=== PATIENT | female | born 1940 | race African-American/Black ===

== ENCOUNTER 2019-07-23 07:06 | Day surgery (SDC) | payer OTHER ==
[2019-07-22 11:39] VITALS: BMI 27.8
[~2019-07-23 07:06] MED LIST: ACETAMINOPHEN 325 MG TABLET (FP) PO PRN; TOBRAMYCIN/DEXAMETHASONE OPHTH. OINTMENT 1 TUBE OD ONE
[2019-07-23] MEDS ORDERED: TROPICAMIDE 1% OPHTH SOLN 15 ML BOTTLE ONE (08:22)
[2019-07-23] MEDS ORDERED: PHENYLEPHRINE 2.5% OPHTH SOLN 15 ML BOTTLE ONE (08:22)
[2019-07-23] MEDS ORDERED: CIPROFLOXACIN HCL 0.3% OPHTH 2.5ML BOTTLE ONE (08:22)
[2019-07-23] MEDS ORDERED: KETOROLAC TROMETHAMINE 0.5% EYE DROP 1 DROP DROPS ONE (08:23)
[2019-07-23] MEDS: PHENYLEPHRINE 2.5% OPHTH SOLN 15 ML BOTTLE OP SCH ×3 (08:25→08:35)
[2019-07-23] MEDS: KETOROLAC TROMETHAMINE 0.5% EYE DROP 1 DROP DROPS OP SCH ×3 (08:25→08:35)
[2019-07-23] MEDS: CIPROFLOXACIN HCL 0.3% OPHTH 2.5ML BOTTLE OP SCH ×3 (08:25→08:35)
[2019-07-23] MEDS: TROPICAMIDE 1% OPHTH SOLN 15 ML BOTTLE OP SCH ×3 (08:25→08:35)
--- NOTE | 2019-07-23 09:36 | HP ---
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, ARIEL) - Ocular History Other Eye History: Other (7th nerve palsy , ARIEL) Eye Medications: vigamox Previous Eye Surgery: none - Medical History Illnesses: Asthma, Hypertension, Hypercholesterolemia, CVA, Other (heart disease , gout) Current Medications: Ambulatory Orders Albuterol Sulfate Inhaler - [Ventolin Hfa Inhaler -] 1 puff IH PRN 07/22/19 Allopurinol 300 mg PO DAILY 07/22/19 Amlodipine Besylate [Norvasc -] 10 mg PO DAILY 07/22/19 Aspirin [ASA -] 81 mg PO DAILY 07/22/19 Colchicine 0.6 mg PO DAILY 07/22/19 Ipratropium/Albuterol Sulfate [Combivent Respimat Inhal [place]] 4 gm IH Q4H 07/22 Lisinopril/Hydrochlorothiazide [Lisinopril-Hctz 20-25 mg Tab] 1 each PO DAILY Naproxen [Naprosyn] 500 mg PO DAILY 07/22/19 Ranolazine [Ranexa] 500 mg PO BID 07/22/19 Rosuvastatin Calcium [Crestor] 20 mg PO DAILY 07/22/19 Allergies/Adverse Reactions: Allergies Allergy/AdvReac Type Severity Reaction Status Date / Time No Known Allergies Allergy Verified 07/22/19 11:39 Ocular Examination - Best Corrected Visual Acuity Distance: Right eye: 20/100 Distance: Left eye: 20/50 - External/Slit Lamp Examination Abnormalities: spk - Intraocular Pressure Intraocular Pressure - Right eye: 17 Intraocular Pressure-Left eye: 17 - Lens Lens: 3+ NS 3+ cortical changes - Vitreous/Retina Vitreous/Retina: c:d 0.3 hazy view m wnl p hazy view - Special Examination M - Right eye: +1.50-0.75 x 050 M - Left eye: +1.25-2.50 x 180 K - Right eye: 42.5/43 x 141 K - Left eye: 42.75/44.50 x93 AL - Right eye: 23.76 AL - Left eye: 23.80 IOL bag: +21.5 AUOOTO IOL sulcus: +20.5 MN60AC IOL AC: +18.0 MTA4UO - Impression Impression: Cataract Right Eye - Plan Plan: Phacoemulsification and cataract extraction - IOL Right eye Post-hospital care will be provided in office on: 07/24/19
--- NOTE | 2019-07-23 09:37 | HP ---
History & Physical Update - History History: No Change - Physical Physical: No Change - Assessment Assessment: No Change - Plan Plan: No Change (Reivewed Dr. Paez's H and P , no changes)
[2019-07-23] MEDS ORDERED: TETRACAINE 0.5% OPHTH SOLN 2 ML BOTTLE TP ONE (09:50)
[2019-07-23] MEDS ORDERED: EPINEPHrine/PF 1 MG/1 ML (1:1,000) AMPULE ONE (09:59)
[2019-07-23] MEDS ORDERED: TRYPAN BLUE 0.5 ML DISP.SYRIN ONE (10:00)
[2019-07-23] MEDS ORDERED: LIDOCAINE HCL/PF 1% SDV 5ML VIAL ONE (10:00)
[2019-07-23] MEDS ORDERED: TETRACAINE 0.5% OPHTH SOLN 2 ML BOTTLE ONE (10:00)
[2019-07-23] MEDS ORDERED: LIDOCAINE HCL 1% PRESERVATIVE FREE - 30ML VIAL IO ONE (10:02)
[2019-07-23] MEDS ORDERED: TRYPAN BLUE 0.5 ML DISP.SYRIN IO ONE (10:03)
[2019-07-23] MEDS ORDERED: EPINEPHrine/PF 1 MG/1 ML (1:1,000) AMPULE SQ ONE ×2 (10:03→10:11)
[2019-07-23] MEDS ORDERED: CHONDROITIN SU A/HYALUR SOD 1 KIT IO ONE (10:05)
[2019-07-23] MEDS ORDERED: MIDAZOLAM HCL 2 MG/2 ML SINGLE DOSE VIAL ONE (10:06)
[2019-07-23] MEDS ORDERED: TOBRAMYCIN/DEXAMETHASONE OPHTH. OINTMENT 1 TUBE OD ONE (10:32)
--- NOTE | 2019-07-23 10:40 | OP ---
Ophthalmology Operative Note Pre-Operative Diagnosis: Cataract Affected Eye: Right (cortical cataract right eye) Operation: Phacoemulsification and cataract extraction with PCIOL (using tyrpan blue and 1:10,000 epi) Findings: mature cataract right eye Post-Operative Diagnosis: Other (mature cataract) Bus Attendant: None Anesthesiologist: Judit Merrill Anesthesia: Local, Topical Specimens Removed: none Estimated blood loss: < 1cc Drains & Tubes with Location: none Operative Report Dictated: Yes
[2019-07-23] MEDS ORDERED: ONDANSETRON 4 MG/2 ML VIAL IVPUSH PRN (10:52)
[2019-07-23] MEDS ORDERED: ACETAMINOPHEN 325 MG TABLET (FP) ONE (10:57)
[2019-07-23] MEDS ORDERED: LACTATED RINGERS SOLUTION 1,000 ML IV SCH (11:00)
[2019-07-23] MEDS ORDERED: CHONDROITIN SU A/HYALUR SOD 1 KIT ONE (11:02)
[2019-07-23 11:05] VITALS: TEMP 97.5
[2019-07-23] MEDS ORDERED: ACETAMINOPHEN 325 MG TABLET (FP) PO ONE (11:26)
[2019-07-23 11:58] VITALS: BP 148/71; PULSE 103
--- NOTE | 2019-07-23 12:44 | OP ---
DATE OF OPERATION: DATE OF DICTATION: 07/23/2019 PREOPERATIVE DIAGNOSIS: Cortical cataract, right eye. POSTOPERATIVE DIAGNOSIS: Mature cataract, right eye. PROCEDURE: Phacoemulsification and cataract extraction with insertion of posterior chamber intraocular lens, right eye. SURGEON: Janette Mercado MD CERTIFIED GENETIC COUNSELOR: None. ANESTHESIA: Topical. ANESTHESIOLOGIST: OPERATIVE PROCEDURE: The patient received Tetracaine eye drops and was gently sedated and prepped and draped in the usual sterile fashion so as to expose only the right eye. Ophthalmic Betadine was instilled into the inferior fornix and lashes were taped out of the surgical field. An eyelid speculum was placed into the right eye. Paracentesis was made in superior temporal clear cornea at the limbus. Then 0.5 mL of nonpreserved lidocaine 1% was injected into the anterior chamber and then 1 mL of dilute epinephrine 1:10,000 was injected to improve pupillary dilation and then an air bubble was placed in the anterior chamber. Trypan Blue was dripped on the anterior capsular edge. Viscoelastic material was instilled into the anterior chamber via the paracentesis. A 2.4-mm keratome blade was then used to create the main incision in temporal clear cornea at the limbus. A continuous curvilinear capsulorhexis was performed using a cystotome and Utrata forceps. Hydrodissection of the lens cortex was performed using BSS on a cannula until the nucleus was noted to be freely rotating. The phacoemulsification tip was then inserted via the main wound and used to scope 2 perpendicular grooves into the lens nucleus. The nucleus was cracked into 4 quadrants. Each quadrant was lifted out of the capsule into the iris plane and individually phacoemulsified. The remaining cortical material was then aspirated using the irrigation/aspiration port. The capsular bag was inflated using ProVisc and a preloaded AcrySof lens model AU00T0 power 21.5 diopters was injected into the capsular bag. It was centered using a Sinskey hook. The residual viscoelastic material was removed from the anterior chamber using irrigation and aspiration. The wound edges were hydrated using BSS. The wound was tested for leakage and was found to be watertight. Tobradex ointment was placed in the eye, and the speculum was removed from the eye, and the eyelid was closed. A sterile dressing and shield were placed over the eye. The patient was transferred to the recovery room in stable condition, told to follow up in 1 day. JANETTE MERCADO M.D. [id number]
== END 2019-07-23 11:55 | disposition home or self-care (01) ==
LOC: JASU-SURG 07:06
PROVIDERS: ATTEND Ophthalmology
PROC: 08RJ3JZ Replacement of Right Lens with Synthetic Substitute, Percutaneous Approach (ICD-10-PCS; principal; 2019-07-23 09:30)
DX: H25.89 Other age-related cataract (principal)

== ENCOUNTER 2020-02-18 05:00 | Day surgery (SDC) | payer OTHER ==
[~2020-02-18 05:00] MED LIST changes: -ACETAMINOPHEN 325 MG TABLET (FP) PO PRN; +TOBRAMYCIN 0.3% OPHTH OINT 3.5 GM OS ONE; -TOBRAMYCIN/DEXAMETHASONE OPHTH. OINTMENT 1 TUBE OD ONE; +TOBRAMYCIN/DEXAMETHASONE OPHTH. OINTMENT 1 TUBE OS ONE
[2020-02-18] MEDS ORDERED: TOBRAMYCIN/DEXAMETHASONE OPHTH. OINTMENT 1 TUBE ONE (06:57)
[2020-02-18] MEDS ORDERED: LIDOCAINE HCL/PF 1% SDV 5ML VIAL ONE (06:58)
[2020-02-18] MEDS ORDERED: POVIDONE-IODINE 5% OPHTHALMIC PREP 30 ML SOLUTION ONE (07:07)
[2020-02-18] MEDS ORDERED: TETRACAINE 0.5% OPHTH SOLN 2 ML BOTTLE ONE (07:07)
[2020-02-18] MEDS ORDERED: CHONDROITIN SU A/HYALUR SOD 1 KIT ONE (07:09)
[2020-02-18] MEDS ORDERED: ACETAMINOPHEN 325 MG TABLET (FP) PO PRN (07:17)
[2020-02-18] MEDS ORDERED: CIPROFLOXACIN HCL 0.3% OPHTH 2.5ML BOTTLE OP SCH (07:30)
[2020-02-18] MEDS ORDERED: PHENYLEPHRINE 2.5% OPHTH SOLN 15 ML BOTTLE OP SCH (07:30)
[2020-02-18] MEDS ORDERED: KETOROLAC TROMETHAMINE 0.5% EYE DROP 1 DROP DROPS OP SCH (07:30)
[2020-02-18] MEDS ORDERED: TROPICAMIDE 1% OPHTH SOLN 15 ML BOTTLE OP SCH (07:30)
[2020-02-18] MEDS ORDERED: TROPICAMIDE 0.5% OPHTHALMIC SOLN 15 ML BOTTLE ONE (07:33)
[2020-02-18 08:03] VITALS: BMI 28.3
[2020-02-18] MEDS ORDERED: MIDAZOLAM HCL 2 MG/2 ML SINGLE DOSE VIAL ONE (09:09)
--- NOTE | 2020-02-18 09:18 | HP ---
- Patient Scheduled date of Surgery: 02/18/20 Scheduled Surgical Procedure: Phacoemulsification and cataract extraction with PCIOL Affected Eye: Left Chief Complaint (Indication for surgery): Decreased vision affecting ADLs - Ocular History Other Eye History: Other (ARIEL and 7th nerve palsy left side) Eye Medications: vigamox 0/3, AT Previous Eye Surgery: s/p ce/pciol OD - Medical History Illnesses: Asthma, Cardiac Disorders (Chest pain, SOB, NM, Valve disease), Hypertension, CVA, Other (gout, arthritis) Current Medications: Ambulatory Orders Albuterol Sulfate Inhaler - [Ventolin Hfa Inhaler -] 1 puff IH PRN 07/22/19 Allopurinol 300 mg PO DAILY 07/22/19 Amlodipine Besylate [Norvasc -] 10 mg PO DAILY 07/22/19 Aspirin [ASA -] 81 mg PO DAILY 07/22/19 Colchicine 0.6 mg PO DAILY 07/22/19 Ipratropium/Albuterol Sulfate [Combivent Respimat Inhal [place]] 4 gm IH Q4H 07/22/19 Lisinopril/Hydrochlorothiazide [Lisinopril-Hctz 20-25 mg Tab] 1 each PO DAILY 07/22/19 Naproxen [Naprosyn] 500 mg PO DAILY 07/22/19 Ranolazine [Ranexa] 500 mg PO BID 07/22/19 Rosuvastatin Calcium [Crestor] 20 mg PO DAILY 07/22/19 Allergies/Adverse Reactions: Allergies Allergy/AdvReac Type Severity Reaction Status Date / Time No Known Allergies Allergy Verified 02/18/20 08:17 Ocular Examination - Best Corrected Visual Acuity Distance: Right eye: 20/25 Distance: Left eye: 20/50 - External/Slit Lamp Examination Abnormalities: spk - Intraocular Pressure Intraocular Pressure - Right eye: 16 Intraocular Pressure-Left eye: 16 - Lens Lens: 3+ NS 3+ cortical - Vitreous/Retina Vitreous/Retina: C:D 0.3 m/v/p wnl - Special Examination M - Right eye: +0.50 M - Left eye: +0.75-2.00 x 180 K - Right eye: 41.5/41.75 x080 K - Left eye: 42.94/44.88 x 93 AL - Right eye: 23.76 AL - Left eye: 23.80 IOL bag: +20.5 AUOOTO IOL sulcus: +19.5 MN60 AC IOL AC: +17.5 MTA 4UO - Impression Impression: Cataract Left Eye - Plan Plan: Phacoemulsification and cataract extraction - IOL Left eye Post-hospital care will be provided in office on: 02/19/20
--- NOTE | 2020-02-18 09:19 | HP ---
History & Physical Update - History History: No Change - Physical Physical: No Change - Assessment Assessment: No Change - Plan Plan: No Change (H and P reviewed from Dr. Medrano on 02/17/2020 no changes)
[2020-02-18] MEDS ORDERED: EPINEPHrine/PF 1 MG/1 ML (1:1,000) AMPULE ONE (09:28)
[2020-02-18] MEDS ORDERED: TETRACAINE 0.5% OPHTH SOLN 2 ML BOTTLE OS ONE (09:32)
[2020-02-18] MEDS ORDERED: POVIDONE-IODINE 5% OPHTHALMIC PREP 30 ML SOLUTION OS ONE (09:33)
[2020-02-18] MEDS ORDERED: CHONDROITIN SU A/HYALUR SOD 1 KIT IO ONE (09:41)
[2020-02-18] MEDS ORDERED: LIDOCAINE HCL 1% PRESERVATIVE FREE - 30ML VIAL IO ONE (09:41)
[2020-02-18] MEDS ORDERED: EPINEPHrine 1:1,000 1 MG/1 ML - 30ML VIAL (INJECTION) SQ ONE ×3 (09:41→09:49)
[2020-02-18] MEDS ORDERED: TOBRAMYCIN/DEXAMETHASONE OPHTH. OINTMENT 1 TUBE OS ONE (10:09)
--- NOTE | 2020-02-18 10:15 | OP ---
Ophthalmology Operative Note Pre-Operative Diagnosis: Cataract (post op diagnosis - mature cataract) Affected Eye: Left Operation: Phacoemulsification and cataract extraction with PCIOL Findings: mature cataract left eye Post-Operative Diagnosis: Same as Pre-op Automobile Upholstery Trim Installer: Felipe Anesthesiologist: Kj Zee Anesthesia: Topical Specimens Removed: none Estimated blood loss: < 1 cc Drains & Tubes with Location: none Operative Report Dictated: Yes
[2020-02-18] MEDS ORDERED: NEOSTIGMINE METHYLSULFATE 0.5 MG/ML - 10 ML MDV ONE (12:11)
[2020-02-18] MEDS ORDERED: GLYCOPYRROLATE 0.2 MG/1 ML VIAL ONE (12:11)
[2020-02-18] MEDS ORDERED: fentaNYL CITRATE 250 MCG/5 ML VIAL ONE (12:11)
[2020-02-18 12:32] VITALS: BP 130/64; PULSE 86; TEMP 97.8
--- NOTE | 2020-02-18 12:54 | OP ---
DATE OF OPERATION: DATE OF DICTATION: 02/18/2020 PREOPERATIVE DIAGNOSIS: Nuclear sclerotic cataract, left eye. POSTOPERATIVE DIAGNOSIS: Mature cataract, left eye. PROCEDURE: Phacoemulsification and cataract extraction with insertion of posterior chamber intraocular lens, left eye. SURGEON: Janette Mercado MD ENTRY LEVEL ELECTRICAL ENGINEER: None. ANESTHESIA: Topical. ANESTHESIOLOGIST: Kj Zee MD OPERATIVE PROCEDURE: The patient received Tetracaine eye drops and was gently sedated and prepped and draped in the usual sterile fashion so as to expose only the left eye. Ophthalmic Betadine was instilled into the inferior fornix and lashes were taped out of the surgical field. An eyelid speculum was placed into the left eye. Paracentesis was made in inferior temporal clear cornea at the limbus. Then 0.5 mL of nonpreserved lidocaine 1% was injected into the anterior chamber and then 1 mL of dilute epinephrine 1:10,000 was injected into the anterior chamber to improve pupillary dilation. Viscoelastic material was instilled into the anterior chamber via the paracentesis. A 2.4-mm keratome blade was then used to create the main incision in temporal clear cornea at the limbus. A continuous curvilinear capsulorhexis was performed using a cystotome and Utrata forceps. Hydrodissection of the lens cortex was performed using BSS on a cannula until the nucleus was noted to be freely rotating. The phacoemulsification tip was then inserted via the main wound and used to scope 2 perpendicular grooves into the lens nucleus. The nucleus was cracked into 4 quadrants. Each quadrant was lifted out of the capsule into the iris plane and individually phacoemulsified. The remaining cortical material was then aspirated using the irrigation/aspiration port. The capsular bag was inflated using ProVisc and a preloaded AcrySof lens model AU00T0 power plus 20.5 diopters was injected into the capsular bag. It was centered using a Sinskey hook. The residual viscoelastic material was removed from the anterior chamber using irrigation and aspiration. The wound edges were hydrated using BSS. The wound was tested for leakage and was found to be watertight. Tobradex ointment was placed in the eye, and the speculum was removed from the eye, and the eyelid was closed. A sterile dressing and shield were placed over the eye. The patient was transferred to the recovery room in stable condition, told to follow up in 1 day. Jocelynn [id number]
== END 2020-02-18 12:30 | disposition home or self-care (01) ==
LOC: JASU-SURG 05:00
PROVIDERS: ATTEND Ophthalmology
PROC: 08RK3JZ Replacement of Left Lens with Synthetic Substitute, Percutaneous Approach (ICD-10-PCS; principal; 2020-02-18 09:30)
DX: H25.12 Age-related nuclear cataract, left eye (principal)